=== PATIENT | male | born 1990 | race African-American/Black ===

== ENCOUNTER 2016-11-25 18:10 | Emergency (ER) | payer BC, OTHER ==
[2016-11-25 18:15] VITALS: BP 150/73; PULSE 75; TEMP 98.2; BMI 27.6
[2016-11-25] MEDS ORDERED: NAPROXEN 500 MG TABLET (FP) PO ONE (19:43)
[2016-11-25] MEDS ORDERED: NAPROXEN 500 MG TABLET (FP) ONE (19:46)
--- NOTE | 2016-11-25 19:49 | PDOC ---
History of Present Illness - General Chief Complaint: Injury Stated Complaint: INJURY Time Seen by Provider: 11/25/16 19:20 History Source: Patient Exam Limitations: No Limitations - History of Present Illness Initial Comments: 11/25/16 20:22 Chief complaint: Right knee pain fell yesterday twisting her right knee History of present illness: Patient is a 26-year-old male with no significant medical history here today complaining of right anterior and posterior knee pain after falling while playing basketball and twisting his right knee inward. Patient has slight swelling and increased warmth of his right suprapatellar knee. Patient has been elevating the leg only iced it once. Patient took Aleve 10 AM yesterday nothing today. Denies any numbness of his right leg. Patient reports that knee has given out on him at times for a few years but did not yesterday. Reports that pain currently as a 7 out of 10 throbbing in nature. Occurred: reports: yesterday Severity: Yes: moderate (rt. knee anterior/posterior pain ) Lower Extremity Pain Location: right: knee Method of Injury: Yes: fell (yesterday ), twisted Modifying Factors: improves with: immobilization Lower Ext. Injury Location - Specific Injury Location Knees: right swelling, right pain (anterior/posterior ) Extremity Pain Location - Extremity Pain Location Extremity Pain Locations: right: knee Past History - Past Medical History Allergies/Adverse Reactions: Allergies Allergy/AdvReac Type Severity Reaction Status Date / Time No Known Allergies Allergy Verified 11/25/16 18:12 Home Medications: Ambulatory Orders Naproxen [Naprosyn -] 500 mg PO BID PRN #14 tablet 11/25/16 - Psycho/Social/Smoking Cessation Hx Anxiety: No Suicidal Ideation: No Smoking History: Never smoked Have you smoked in the past 12 months: No Information on smoking cessation initiated: No Hx Alcohol Use: No Drug/Substance Use Hx: No Substance Use Type: None Review of Systems - Review of Systems Able to Perform ROS?: Yes Constitutional: No: Symptoms Reported HEENTM: No: Symptoms Reported Respiratory: No: Symptoms reported Cardiac (ROS): No: Symptoms Reported ABD/GI: No: Symptoms Reported : No: Symptoms Reported Musculoskeletal: Yes: Joint Pain (rt. anterior/posterior knee ) Integumentary: No: Symptoms Reported Neurological: No: Symptoms reported *Physical Exam - Vital Signs Last Vital Signs Temp Pulse Resp BP Pulse Ox 98.2 F 75 18 150/73 100 11/25/16 18:12 11/25/16 18:12 11/25/16 18:12 11/25/16 18:12 11/25/16 18:12 - Physical Exam General Appearance: Yes: Appropriately Dressed Vascular Pulses: Dorsalis-Pedis (R): 4+ Extremity: positive: Normal Capillary Refill, Normal Inspection, Normal Range of Motion (negative anterior/posterior drawer, no crepitus, negative valgus/ varus stretch), Tender (rt. anterior/posteriro ), Swelling (minimal rt. suprapatella ) Integumentary: positive: Normal Color Neurologic: positive: Alert, Normal Response, Responsive ED Treatment Course - RADIOLOGY Radiology Studies Ordered: Category Date Time Status KNEE 3 POS-RIGHT [RAD] Stat Radiology 11/25/16 19:43 Ordered Medical Decision Making - Medical Decision Making 11/25/16 20:24 Patient is a 26-year-old male with no significant medical history here today complaining of right anterior and posterior knee pain after falling while playing basketball and twisting his right knee inward. Patient has slight swelling and increased warmth of his right suprapatellar knee. Patient has been elevating the leg only iced it once. Patient took Aleve 10 AM yesterday nothing today. Denies any numbness of his right leg. Patient reports that knee has given out on him at times for a few years but did not yesterday. Reports that pain currently as a 7 out of 10 throbbing in nature. Right knee pain with suprapatella joint effusion r/o tj abnormality PLAN: naprosyn 500 mg po now than bid prn pain $# 14 tabs xray right knee no bony abnormality noted however patient does have a small suprapatellar joint effusion Right knee immobilizers and crutches given patient to follow up with orthopedist as soon as possible *DC/Admit/Observation/Transfer Diagnosis at time of Disposition: Effusion of right knee Right knee pain Qualifiers: Chronicity: acute Qualified Code(s): M25.561 - Pain in right knee - Discharge Dispostion Disposition: HOME Condition at time of disposition: Stable - Referrals Referrals: Malcolm Campos MD [Staff Physician] - - Patient Instructions Additional Instructions: Date right leg as much as possible and apply ice every 2 hours for 15 minutes while awake today and tomorrow Wear knee immobilizer during the day and use crutches Follow-up with orthopedist as soon as possible Return to emergency room if symptoms worsen increased swelling or increased warmth of right knee or fever Patient voiced understanding of discharge instructions and all questions were answered - Post Discharge Activity Work/School Note: Back to Work
== END 2016-11-25 21:22 | disposition home or self-care (01) ==
LOC: JERFT 18:10
PROC: 2W3LX1Z Immobilization of Right Lower Extremity using Splint (ICD-10-PCS; principal; 2016-11-25)
DX: M25.461 Effusion, right knee (principal); M25.561 Pain in right knee; X58.XXXA Exposure to other specified factors, initial encounter; Y93.67 Activity, basketball; Y92.310 Basketball court as the place of occurrence of the external cause
CPT/HCPCS: 73562-TC-RT; 99281-25

== ENCOUNTER 2016-12-20 08:13 | Day surgery (SDC) | payer BC ==
[2016-12-17 11:48] VITALS: BMI 27.6
--- NOTE | 2016-12-20 08:06 | HP ---
Satellite [facility] [place] - Chief Complaint Chief Complaint: right knee pain/instability - Past Medical History Allergies/Adverse Reactions: Allergies Allergy/AdvReac Type Severity Reaction Status Date / Time No Known Drug Allergies Allergy Verified 12/17/16 11:43 - Current Medications Current Medications: Home Medications Medication Instructions Recorded Cetirizine HCl [Zyrtec -] 10 mg PO DAILY 12/17/16 Oxycodone HCl/Acetaminophen 1 - 2 tab PO Q6H #50 tab MDD 8 12/20/16 [Percocet 5-325 mg Tablet -] Satellite Physical Exam - Physical Examination General Appearance: Well Nourished, Well Developed, Alert & Oriented x3 ENT: Clear Lung: Normal air movement Heart: Regular rate & rhythm Extremities: Other (right knee- + swelling, + ttp, + lachmans, + ant draw, + pivot, nvi MRI + acl rupture) Neurological: Intact, Alert, Oriented Satellite Impression/Plan - Impression/Plan Impression: right knee internal derangement Operative Procedure: right knee arthroscopy with ACL reconstruction using BTB autograft Date to be Performed: 12/20/16
[2016-12-20] MEDS ORDERED: ROPIVACAINE HCL 0.5% 30ML VIAL ONE (08:47)
[2016-12-20] MEDS ORDERED: DEXAMETHASONE SOD PHOSPHATE 4 MG/1 ML VIAL ONE ×2 (08:47→09:33)
[2016-12-20] MEDS ORDERED: MIDAZOLAM HCL 2 MG/2 ML SINGLE DOSE VIAL ONE (08:48)
[2016-12-20] MEDS ORDERED: ONDANSETRON 4 MG/2 ML VIAL ONE (09:33)
[2016-12-20] MEDS ORDERED: PROPOFOL 20 ML ONE (09:33)
[2016-12-20] MEDS ORDERED: ceFAZolin SODIUM 1 GM VIAL ONE ×2 (10:36→13:56)
[2016-12-20] MEDS ORDERED: KETOROLAC TROMETHAMINE 30 MG/1 ML VIAL ONE (11:25)
[2016-12-20] MEDS ORDERED: BUPIVACAINE HCL/PF 0.5% (5MG/ML) 10 ML VIAL ONE (11:40)
[2016-12-20] MEDS ORDERED: BUPIVACAINE HCL/PF 0.5% (5MG/ML) 10 ML VIAL IJ ONE (11:41)
--- NOTE | 2016-12-20 12:01 | OP ---
Operative Note - Note: Operative Date: 12/20/16 (natanael) Pre-Operative Diagnosis: right knee internal derangement Operation: right knee arthroscopy ACL reconstruction using btb autograft Post-Operative Diagnosis: Same as Pre-op Surgeon: Malcolm Campos Tunnel Inspector: Jevon Winston Anesthesiologist/DENTAL HYGIENE PROFESSOR: Avery Hernández Anesthesia: General, Local Specimens Removed: shavings Estimated Blood Loss (mls): 0 (tourniquet) Operative Report Dictated: Yes
[2016-12-20] MEDS ORDERED: PROMETHAZINE HCL 25 MG/1 ML VIAL IVPUSH PRN (12:09)
[2016-12-20] MEDS ORDERED: oxyCODONE HCL 5 MG TABLET PO PRN (12:09)
[2016-12-20] MEDS ORDERED: LACTATED RINGERS SOLUTION 1,000 ML IV SCH (12:15)
[2016-12-20] MEDS ORDERED: CEFAZOLIN 1 GM in DEXTROSE 5%-WATER - 50 ML IVPB ONE (13:00)
[2016-12-20] MEDS ORDERED: oxyCODONE HCL 5 MG TABLET ONE (13:38)
--- NOTE | 2016-12-20 15:05 | SPEC ---
DATE OF OPERATION: 12/20/2016 DATE OF DICTATION: 12/20/2016 PREOPERATIVE DIAGNOSIS: Right anterior cruciate ligament tear. POSTOPERATIVE DIAGNOSIS: Right anterior cruciate ligament tear. PROCEDURE: Right anterior cruciate ligament reconstruction with bone patellar bone autograft harvesting. SURGEON: Malcolm Campos M.D. BOX SPRING MAKER: ERIC Del Angel ANESTHESIA: Regional and LMA. CLOSURE: Arthrex metallic interference screw fixation for graft, 0 Vicryl for fascia, 2-0 for paratenon and subcutaneous, and 3-0 Monocryl subcuticular with skin glue for skin. ESTIMATED BLOOD LOSS: Negligible. TOURNIQUET TIME: Approximately an hour. DESCRIPTION OF PROCEDURE: The patient was taken to the Operating Room on . Adductor canal block as well as general anesthesia was administered by the anesthesiologist. IV Kefzol was given prophylactically prior to the case. A well-padded pneumatic tourniquet was placed on the right proximal thigh. The right lower extremity was prepped and draped in the usual sterile fashion. The leg was exsanguinated with an Esmarch bandage and the tourniquet was inflated to 275 mmHg. A 6.0 cm longitudinal incision centered over the patellar tendon was incised down to the level of the patellar tendon through the paratenon. Flaps were made below the paratenon from the mid-patella to tibial tubercle, and medially and laterally to expose the entire patellar tendon. The central 10 mm were harvested using a 10 mm double blade, 10 x 25 mm bone plugs were harvested at its ends using micro-oscillating saw. Two drill holes were placed through each plug, and through these drill holes No 2 Fiberwire traction sutures were applied. The graft was measured and contoured to fit snugly through a 10 mm sizer, and was placed on the back table on a sponge until needed later in the procedure. A rent in the patellar tendon was closed using No. 1 Vicryl interrupted suture. An L was made in the periosteum 1-cm medial to the tibial tubercle for later tibial tunnel placement. Next, the arthroscopic part of the procedure was performed. A superolateral portal was made using a No. 15 blade followed by a blunt trocar. The medial and lateral infrapatellars were made through the previously-made incision using a No. 15 blade followed by a blunt trocar. The scope was placed in the lateral infrapatellar portal and up into the suprapatellar pouch. The pouch was visualized to be clean. The medial and lateral gutters were visualized to be clean. The undersurface of the patella and trochlea were visualized to be intact. With valgus stress on the knee the medial compartment was entered. The medial meniscus was visualized and probed, and found to be intact. The medial femoral condyle was run and found to be intact, as was the medial tibial plateau. In the figure-four position the lateral compartment was entered. The lateral meniscus was visualized and probed, and found to be intact. The lateral femoral condyle was run and found to be intact, as was the lateral tibial plateau. At 90 degrees the ACL was visualized to be completely torn with a large stump anteriorly. This was debrided using the shaver. Next, a notchplasty was performed using a zuleika and ArthroCare device until the appropriate width and height of the notch was obtained, and the insertion site of the femoral tunnel was clearly seen from anteriorly. All particulate debris was removed using the shaver. Using a 10 mm retro-drill, a tunnel was drilled from the anterior, medial and proximal tibia into the knee just anterior to the PCL. All bone fragments and soft tissue around the tunnel were debrided using the shaver. With the knee flexed greater than 120 degrees, a Beath pin was placed through the AM portal, and drilled from the posterior aspect of the notch until it exiting the anterolateral distal thigh. This was over-reamed with a 10 mm flat low-profile reamer to the appropriate depth. All bone fragments were debrided using the shaver. Good posterior wall was clearly seen, but also insuring that the graft was posterior enough. Through the Beath pin was placed a shuttle suture, which was pulled until it exited the anterolateral distal thigh. The shuttle suture was then pulled down the tibial tunnel. The shuttle suture was used to shuttle the traction sutures and the graft from the anterior, medial and proximal tibia until it exited the anterolateral distal thigh. The graft was pulled up until it was snugly buried in the femoral tunnel. An Arthrex interference screw was placed between the femoral bone plug and the femoral tunnel, achieving excellent fixation. The knee was taken through a range of motion and found that the graft crossed nicely over the PCL and did not impinge on the notch from full extension to full flexion. With 20 degrees of flexion and posterior drawer being applied, an interference screw was placed between the tibial bone plug and the tibial tunnel of appropriate length, achieving excellent fixation. The knee was again taken through a range of motion and found to go from full extension and full flexion with excellent tension on the graft as it crossed the PCL, negative Rajani, negative pivot shift, negative anterior and posterior drawer, and no impingement on the notch. Traction sutures were removed. The donor site on the patella was filled with StimuBlast bone putty. The paratenon was closed using 2-0 Vicryl running suture, 2-0 for subcutaneous, and 3-0 Monocryl subcuticular with skin glue to the skin. Sterile pressure dressing followed by a knee immobilizer was applied. Tourniquet was deflated with a total tourniquet of time of approximately one hour. No complications. Dylan [id number]
[2016-12-20] MEDS ORDERED: PROMETHAZINE HCL 25 MG/1 ML VIAL ONE (15:19)
[2016-12-20 18:57] VITALS: BP 120/67; PULSE 59; TEMP 98
--- NOTE | 2016-12-23 11:36 | PATH ---
Surgical Pathology Report Patient Name: CHIP MCGHEE [facility]. Rec. #: [id number] /Age/Gender: 1990 (Age: 26) / M Account: [id number] Location: [facility] Taken: 12/20/2016 Received: 12/20/2016 Reported: 12/23/2016 Physicians: Malcolm Campos M.D. Specimen(s) Received LEFT KNEE SHAVINGS Clinical History Right ACL tear Final Diagnosis RIGHT KNEE, ARTHROSCOPIC SHAVINGS: FIBROCARTILAGE WITH MYXOID DEGENERATIVE CHANGES, PORTIONS OF SYNOVIUM, AND FRAGMENTS OF BONE. Electronically Signed Froilan Ortiz M.D. Gross Description Received in formalin, labeled "right knee shavings," is a 3.2 x 3.0 x 0.3 cm. aggregate of pitts-yellow soft tissue fragments. A member services representative portion is submitted in one cassette. /12/20/201612/20/2016
== END 2016-12-20 18:35 | disposition home or self-care (01) ==
LOC: MERGE 08:13 → FASU 08:13
PROVIDERS: ATTEND Orthopaedic Surgery
PROC: 0MUN47Z Supplement Right Knee Bursa and Ligament with Autologous Tissue Substitute, Percutaneous Endoscopic Approach (ICD-10-PCS; principal; 2016-12-20 09:30)
DX: S83.511A Sprain of anterior cruciate ligament of right knee, initial encounter (principal); X58.XXXA Exposure to other specified factors, initial encounter; Y93.9 Activity, unspecified; Y92.9 Unspecified place or not applicable
CPT/HCPCS: 88304-TC; 94760; 97116-GP